=== PATIENT | female | born 1995 ===

== ENCOUNTER 2016-12-03 20:26 | Emergency (ER) | payer MEDICAID, OTHER ==
--- NOTE | 2016-12-03 20:50 | ED PDOC ---
HPI: Female Pain Time Seen by Provider: 12/03/16 20:47 Chief Complaint (Provider): Pelvic pain, - 8 weeks History Per: Patient History/Exam Limitations: no limitations Onset/Duration Of Symptoms: Hrs Current Symptoms Are (Timing): Still Present Severity: Mild Pain Scale Rating Of: 2 Additional Complaint(s): Pt states LMP was 10/03/16. Pt went to [facility] days ago and blood work completed. Pt has not had US to confirm IUP. Pt states she noticed blood when she wiped twice today but believes it is coming from the urine not the vaginal. Pt also reports suprapubic cramping, less than menses today. Past Medical History Reviewed: Historical Data, Nursing Documentation, Vital Signs - Medical History PMH: No Chronic Diseases - Surgical History Surgical History: No Surg Hx - Family History Family History: States: No Known Family Hx - Living Arrangements Living Arrangements: With Family - Social History Current smoker - smoking cessation education provided: No Alcohol: None Drugs: Denies - Home Medications Home Medications: Ambulatory Orders Medication Instructions Recorded Nitrofurantoin Macrocrystals 100 mg PO BID #9 cap 12/03/16 [Macrobid] - Allergies Allergies/Adverse Reactions: Allergies Allergy/AdvReac Type Severity Reaction Status Date / Time No Known Allergies Allergy Verified 12/03/16 20:49 Review of Systems ROS Statement: Except As Marked, All Systems Reviewed And Found Negative Constitutional: Negative for: Fever, Chills Genitourinary Female: Positive for: Hematuria, Pelvic Pain. Negative for: Vaginal Bleeding Physical Exam - Reviewed Nursing Documentation Reviewed: Yes Vital Signs Reviewed: Yes - Physical Exam Appears: Positive for: Well, Non-toxic, No Acute Distress Head Exam: Positive for: ATRAUMATIC, NORMAL INSPECTION, NORMOCEPHALIC Skin: Positive for: Normal Color, Warm, DRY Eye Exam: Positive for: Normal appearance ENT: Positive for: Normal ENT Inspection Neck: Positive for: Normal, Painless ROM Cardiovascular/Chest: Positive for: Regular Rate, Rhythm Respiratory: Positive for: Normal Breath Sounds. Negative for: Accessory Muscle Use, Respiratory Distress Gastrointestinal/Abdominal: Positive for: Normal Exam, Bowel Sounds, Soft. Negative for: Tenderness Back: Positive for: Normal Inspection Extremity: Positive for: Normal ROM Neurologic/Psych: Positive for: Alert, Oriented - Laboratory Results Result Diagrams: 12/03/16 20:55 10/05/17 21:13 - ECG Pulse Ox Interpretation: Normal Medical Decision Making Medical Decision Making: (+) UTI IUP on Us Disposition - Clinical Impression Clinical Impression: Urinary tract infection - Patient ED Disposition Is Patient to be Admitted: No - Disposition [facility] Disposition: Routine/Home Disposition Time: 23:17 Condition: GOOD Prescriptions: Nitrofurantoin Macrocrystals [Macrobid] 100 mg PO BID #9 cap Instructions: Urinary Tract Infection in (ED) Print Language: TURKMEN
[2016-12-03 20:51] VITALS: BP 134/82; PULSE 100; RESP 16; TEMP 97.9; O2SAT 99
[2016-12-03 21:20] LABS: HEMATOCRIT 38.5 % (34.0-47.0); MEAN CELL VOLUME 89.8 fl (81.0-99.0); MEAN CORPUSCULAR HEMOGLOBIN 30.1 pg (27.0-31.0); MEAN CORPUSCULAR HGB CONC 33.5 g/dL (33.0-37.0); RED CELL DISTRIBUTION WIDTH 12.4 % (11.5-14.5); WHITE BLOOD COUNT 15.8 K/uL (4.8-10.8)
[2016-12-03 21:40] LABS: ALB/GLOB RATIO 1.5 (1.0-2.1); ALKALINE PHOSPHATASE 34 U/L (38-126); ALT/SGPT 24 U/L (9-52); AST/SGOT 19 U/L (14-36); BILIRUBIN,TOTAL 0.3 mg/dl (0.2-1.3); BLOOD UREA NITROGEN 10 mg/dl (7-17); CALCIUM 9.5 mg/dL (8.4-10.2); CARBON DIOXIDE 22 mmol/L (22-30); CHLORIDE 105 mmol/L (98-107); GFR AFRICAN-AMERICAN > 60; GLUCOSE,RANDOM 83 mg/dL (65-105); SODIUM 140 mmol/l (132-148); TOTAL PROTEIN 7.4 G/DL (6.3-8.2)
[2016-12-03 21:44] LABS: RBC URINE 360 /hpf (0-3); URINE BILIRUBIN NEGATIVE (NEGATIVE); URINE BLOOD LARGE (NEGATIVE); URINE COLOR YELLOW (YELLOW); URINE GLUCOSE (UA) NEG (Normal); URINE KETONE NEGATIVE (NEGATIVE); URINE LEUKOCYTE ESTERASE LARGE Leu/uL (Negative); URINE PROTEIN 100 mg/dL (NEGATIVE); URINE UROBILINOGEN 0.2-1.0 mg/dL (0.2-1.0); WBC URINE 327 /hpf (0-5)
--- NOTE | 2016-12-04 12:27 | US ---
PROCEDURE: First trimester ultrasound HISTORY: 8 weeks, pelvic pain Beta HCG results: Pending COMPARISON: None available. TECHNIQUE: Standard protocol for this study/examination. FINDINGS: LMP: 10/03/2016 Prior examinations from the current : None TECHNIQUE: Real-time 2D imaging, duplex and color Doppler. FINDINGS: Cardiac activity: Present Rate: 128 BPM Measurements: [place] rump length: 0.46 cm Gestational age based on CRL 6 weeks 1 day. Gestational age based on gestational sac measurement 5 weeks 6 days Gestational age derived from LMP: 8 weeks 5 days JORDON based on LMP: 07/10/2017 JORDON based on biometry: 07/29/2017 Gestational concordance documented Yolk sac identified Uterus: Unremarkable. No Cervical abnormalities: Negative examination for cervical dilatation or effacement. Cervical length 3.7 cm Subchorionic hemorrhage: None ADNEXA: Right: 1.9 x 2.1 x 2.6 cm. Normal Doppler arterial waveform documented. Left: 2.0 x 3.1 x 3.2 cm. Normal Doppler arterial waveform documented Fluid in the cul-de-sac: None. IMPRESSION: Six weeks, live intrauterine gestation. Concordant results (preliminary interpretation) provided by [facility]. Procedure Completed: 22:01 Preliminary ([facility]) Report: Dictated and Authenticated: 23:10 Final Interpretation: 12:25 December 04, 2016.
== END 2016-12-03 23:26 | disposition home or self-care (01) ==
LOC: H.ER 20:26
DX: O23.40 Unspecified infection of urinary tract in pregnancy, unspecified trimester (principal)

== ENCOUNTER 2016-12-07 12:58 | Emergency (ER) | payer MEDICAID ==
[2016-12-07 15:05] LABS: BASO # 0.1 K/uL (0.0-0.2); BASO % 0.8 % (0.0-2.0); EOS # 0.5 K/uL (0.0-0.7); EOS % 4.6 % (0.0-4.0); HEMATOCRIT 38.1 % (34.0-47.0); LYMPH # 2.7 K/uL (1.0-4.3); LYMPH % 26.2 % (20.0-40.0); MEAN CELL VOLUME 88.8 fl (81.0-99.0); MEAN CORPUSCULAR HEMOGLOBIN 30.8 pg (27.0-31.0); MEAN CORPUSCULAR HGB CONC 34.7 g/dL (33.0-37.0); MEAN PLATELET VOLUME 10.6 fl (7.2-11.7); MONO % 9.3 % (0.0-10.0); NEUT # 6.1 K/uL (1.8-7.0); NEUT % 59.1 % (50.0-75.0); RED CELL DISTRIBUTION WIDTH 12.6 % (11.5-14.5); WHITE BLOOD COUNT 10.3 K/uL (4.8-10.8)
--- NOTE | 2016-12-07 15:15 | ED PDOC ---
HPI: General Adult Time Seen by Provider: 12/07/16 13:18 Chief Complaint (Nursing): Abdominal Pain History Per: Patient Additional Complaint(s): Pt. states for the past week she's had intermittent non-radiating epigastric pain associated with nausea but no vomiting. Further states that abdominal pain arises after eating. Pt. states she is currently . LMP 10/03/2016. Pt. states she was seen here 4 days ago as she noticed some bleeding when she wiped after she urinated. Reports that she had an US which was normal and was dx as having UTI and is currently taking Macrobid. Reports bleeding has resolved. States pain in abdomen has been present before taking antibiotics. Denies dysuria, fever, hematemesis, diarrhea, hematochezia, BRBPR, chest pain, SOB, hx of ectopic . Past Medical History Reviewed: Historical Data, Nursing Documentation, Vital Signs Vital Signs: Last Vital Signs Temp 98.0 F 12/07/16 13:13 Pulse 84 12/07/16 13:13 Resp 16 12/07/16 13:13 BP 104/71 12/07/16 13:13 Pulse Ox 99 12/07/16 15:16 - Family History Family History: States: No Known Family Hx - Home Medications Home Medications: Ambulatory Orders Medication Instructions Recorded Nitrofurantoin Macrocrystals 100 mg PO BID #9 cap 12/03/16 [Macrobid] Famotidine [Pepcid] 20 mg PO DAILY PRN #14 tab 12/07/16 - Allergies Allergies/Adverse Reactions: Allergies Allergy/AdvReac Type Severity Reaction Status Date / Time No Known Allergies Allergy Verified 12/03/16 20:49 Review of Systems ROS Statement: Except As Marked, All Systems Reviewed And Found Negative Gastrointestinal: Positive for: Nausea, Abdominal Pain Physical Exam - Reviewed Nursing Documentation Reviewed: Yes Vital Signs Reviewed: Yes - Physical Exam Appears: Positive for: Well, Non-toxic, No Acute Distress Head Exam: Positive for: ATRAUMATIC, NORMAL INSPECTION, NORMOCEPHALIC Skin: Positive for: Normal Color, Warm. Negative for: Rash Eye Exam: Positive for: Normal appearance Cardiovascular/Chest: Positive for: Regular Rate, Rhythm Respiratory: Positive for: CNT, Normal Breath Sounds Gastrointestinal/Abdominal: Positive for: Normal Exam, Bowel Sounds, Soft. Negative for: Tenderness, Guarding Back: Positive for: Normal Inspection. Negative for: L CVA Tenderness, R CVA Tenderness Extremity: Positive for: Normal ROM Neurologic/Psych: Positive for: Alert, Oriented - Laboratory Results Result Diagrams: 12/07/16 15:00 12/07/16 15:00 - ECG O2 Sat by Pulse Oximetry: 99 - Progress ED Course And Treament: Labs ordered. Pepcid 20mg IV, reglan 10mg IVPB ordered. Re-evaluation Time: 15:46 (Pt. had meal while in ED and reports good relief of pain. Abd soft and non-tender. States abd pain has completely resolved. ) Condition: Re-examined, Improved Disposition - Clinical Impression Clinical Impression: Gastritis - Patient ED Disposition Is Patient to be Admitted: No - Disposition Disposition: Routine/Home Disposition Time: 15:47 Condition: IMPROVED Prescriptions: Famotidine [Pepcid] 20 mg PO DAILY PRN #14 tab PRN Reason: Dyspepsia Instructions: Gastritis (ED) Forms: [facility] (Thai) Print Language: MACEDONIAN
[2016-12-07 15:31] LABS: ALB/GLOB RATIO 1.5 (1.0-2.1); ALKALINE PHOSPHATASE 36 U/L (38-126); ALT/SGPT 23 U/L (9-52); AST/SGOT 17 U/L (14-36); BILIRUBIN,TOTAL 0.5 mg/dl (0.2-1.3); BLOOD UREA NITROGEN 5 mg/dl (7-17); CALCIUM 9.7 mg/dL (8.4-10.2); CARBON DIOXIDE 24 mmol/L (22-30); CHLORIDE 102 mmol/L (98-107); GFR AFRICAN-AMERICAN > 60; GLUCOSE,RANDOM 82 mg/dL (65-105); LIPASE 99 U/L (23-300); POTASSIUM 4.1 MMOL/L (3.6-5.0); SODIUM 139 mmol/l (132-148); TOTAL PROTEIN 7.5 G/DL (6.3-8.2)
[2016-12-07 16:44] VITALS: BP 120/76; PULSE 75; RESP 18; TEMP 98; O2SAT 100
== END 2016-12-07 16:44 | disposition home or self-care (01) ==
LOC: H.ER 12:58
DX: K29.70 Gastritis, unspecified, without bleeding (principal); Z33.1 Pregnant state, incidental
CPT/HCPCS: 80053; 83690; 85025; 96374; 99283; J2765

== ENCOUNTER 2017-01-08 20:55 | Emergency (ER) | payer MEDICAID, OTHER ==
[2017-01-08 21:06] VITALS: BP 127/82; PULSE 103; RESP 18; TEMP 97.2; O2SAT 100
[2017-01-08 22:40] LABS: BASO # 0.1 K/uL (0.0-0.2); BASO % 0.6 % (0.0-2.0); EOS # 0.6 K/uL (0.0-0.7); EOS % 4.4 % (0.0-4.0); HEMATOCRIT 33.5 % (34.0-47.0); LYMPH # 3.4 K/uL (1.0-4.3); LYMPH % 27.3 % (20.0-40.0); MEAN CELL VOLUME 88.4 fl (81.0-99.0); MEAN PLATELET VOLUME 10.7 fl (7.2-11.7); NEUT # 7.5 K/uL (1.8-7.0); NEUT % 59.7 % (50.0-75.0); RED CELL DISTRIBUTION WIDTH 12.4 % (11.5-14.5); WHITE BLOOD COUNT 12.6 K/uL (4.8-10.8)
[2017-01-08 22:43] LABS: URINE BACTERIA OCC (<OCC); URINE BILIRUBIN NEGATIVE (NEGATIVE); URINE BLOOD MODERATE (NEGATIVE); URINE COLOR YELLOW (YELLOW); URINE GLUCOSE (UA) NEG (Normal); URINE KETONE NEGATIVE (NEGATIVE); URINE LEUKOCYTE ESTERASE MOD Leu/uL (Negative); URINE PROTEIN NEGATIVE (NEGATIVE); URINE UROBILINOGEN 0.2-1.0 mg/dL (0.2-1.0)
--- NOTE | 2017-01-08 22:47 | US ---
EXAM: US Uterus, Limited CLINICAL HISTORY: 21 years old, female; Signs and symptoms; Lmp or gestational age (in weeks): 10/03/16; Antepartum complications; Hemorrhage; ; Additional info: Vag bleed preg R/O demise TECHNIQUE: Real-time ultrasound of the maternal uterus (limited) with image documentation. COMPARISON: US - OB TRANSVAGINAL 2016-12-03 21:47 FINDINGS: A single intrauterine gestation is identified with a crown-rump length measuring 4.6 cm, corresponding to approximate gestational age of 11 weeks and 3 days. cardiac activity is identified a rate of 172 beats per minute. motion is observed on the cine images. The cervix measures 4.3 cm, and is closed. No free fluid is identified. Despite prolonged interrogation, neither ovary was visualized. IMPRESSION: Single intrauterine gestation with an approximate gestational age of 11 weeks and 3 days. cardiac activity is identified.
[2017-01-08 22:52] LABS: RBC URINE 25 /hpf (0-3); WBC URINE 18 /hpf (0-5)
[2017-01-08 23:08] LABS: ALKALINE PHOSPHATASE 30 U/L (38-126); ALT/SGPT 20 U/L (9-52); AST/SGOT 16 U/L (14-36); BILIRUBIN,TOTAL 0.2 mg/dl (0.2-1.3); BLOOD UREA NITROGEN 7 mg/dl (7-17); CALCIUM 9.5 mg/dL (8.4-10.2); CARBON DIOXIDE 21 mmol/L (22-30); CHLORIDE 107 mmol/L (98-107); GFR AFRICAN-AMERICAN > 60; GLUCOSE,RANDOM 85 mg/dL (65-105); SODIUM 139 mmol/l (132-148); TOTAL PROTEIN 7.1 G/DL (6.3-8.2)
[2017-01-08 23:13] LABS: ALB/GLOB RATIO 1.4 (1.0-2.1)
--- NOTE | 2017-01-08 23:27 | ED PDOC ---
HPI: Female Pain Time Seen by Provider: 01/08/17 21:12 Chief Complaint (Nursing): Female Genitourinary Chief Complaint (Provider): vaginal bleeding Onset/Duration Of Symptoms: Sudden Onset Current Symptoms Are (Timing): Gone Now Severity: Mild Quality Of Discomfort: denies: "Pain" Associated Symptoms: Urinary Symptoms (frequency, but no dysuria). denies: Fever, Chills, Nausea, Vomiting, Diarrhea, Loss Of Appetite, Back Pain, Chest Pain Additional Complaint(s): episode occurred while showering, no clot, no cramping. [facility] Past Medical History Reviewed: Historical Data, Nursing Documentation, Vital Signs Vital Signs: Last Vital Signs Temp 97.2 F L 01/08/17 21:03 Pulse 103 H 01/08/17 21:03 Resp 18 01/08/17 21:03 BP 127/82 01/08/17 21:03 Pulse Ox 100 01/08/17 21:03 - Medical History PMH: No Chronic Diseases - Surgical History Surgical History: No Surg Hx - Family History Family History: States: No Known Family Hx - Social History Current smoker - smoking cessation education provided: No - Home Medications Home Medications: Ambulatory Orders Medication Instructions Recorded Nitrofurantoin Macrocrystals 100 mg PO BID #9 cap 12/03/16 [Macrobid] Famotidine [Pepcid] 20 mg PO DAILY PRN #14 tab 12/07/16 Nitrofurantoin Macrocrystals 1 cap PO BID #14 cap 01/08/17 [Macrobid] - Allergies Allergies/Adverse Reactions: Allergies Allergy/AdvReac Type Severity Reaction Status Date / Time No Known Allergies Allergy Verified 12/03/16 20:49 Review of Systems ROS Statement: Except As Marked, All Systems Reviewed And Found Negative (and as per HPI) Gastrointestinal: Negative for: Nausea, Vomiting, Abdominal Pain, Diarrhea Genitourinary Female: Positive for: Frequency, Vaginal Bleeding. Negative for: Dysuria, Pelvic Pain Physical Exam - Reviewed Nursing Documentation Reviewed: Yes Vital Signs Reviewed: Yes - Physical Exam Appears: Positive for: Well, No Acute Distress Head Exam: Positive for: ATRAUMATIC, NORMOCEPHALIC Skin: Positive for: Warm, Dry Eye Exam: Positive for: EOMI, PERRL ENT: Positive for: Pharynx Is (clear) Neck: Positive for: Painless ROM, Supple Cardiovascular/Chest: Positive for: Regular Rate, Rhythm, Chest Non Tender. Negative for: Murmur Respiratory: Positive for: Normal Breath Sounds. Negative for: Wheezing Gastrointestinal/Abdominal: Positive for: Soft. Negative for: Tenderness Back: Positive for: Normal Inspection. Negative for: Decreased ROM Extremity: Positive for: Normal ROM. Negative for: Deformity Lymphatic: Negative for: Adenopathy Neurologic/Psych: Positive for: Alert. Negative for: Motor/Sensory Deficits - Laboratory Results Result Diagrams: 01/08/17 22:29 01/08/17 22:55 - ECG O2 Sat by Pulse Oximetry: 100 Medical Decision Making Medical Decision Making: EXAM: US Uterus, Limited CLINICAL HISTORY: 21 years old, female; Signs and symptoms; Lmp or gestational age (in weeks): 10/03; Antepartum complications; Hemorrhage; ; Additional info: Vag bleed preg R/O demise TECHNIQUE: Real-time ultrasound of the maternal uterus (limited) with image documentation. COMPARISON: US - OB TRANSVAGINAL 2016-12-03 21:47 FINDINGS: A single intrauterine gestation is identified with a crown-rump length measuring 4.6 cm, corresponding to approximate gestational age of 11 weeks and 3 days. cardiac activity is identified a rate of 172 beats per minute. motion is observed on the cine images. The cervix measures 4.3 cm, and is closed. No free fluid is identified. Despite prolonged interrogation, neither ovary was visualized. IMPRESSION: Single intrauterine gestation with an approximate gestational age of 11 weeks and 3 days. cardiac activity is identified. Thank you for allowing us to participate in the care of your patient. Dictated and Authenticated by: Breana Valencia MD 01/08/2017 10:47 PM Eastern Time ([place] & [place]) Disposition - Clinical Impression Clinical Impression: Urinary tract infection, Vaginal bleeding in Counseled Patient/Family Regarding: Studies Performed, Diagnosis, Need For Followup, Rx Given - Disposition Disposition: Routine/Home Disposition Time: 23:28 Condition: GOOD Additional Instructions: REST FOR 2 DAYS AND SEE YOUR SALES PERSON ON WEDNESDAY PELVIC REST (NO TAMPON, NO SEX, NO DOUCHE) Prescriptions: Nitrofurantoin Macrocrystals [Macrobid] 1 cap PO BID #14 cap Instructions: First Trimester Vaginal Bleed (ED), Urinary Tract Infection in (ED), Pelvic Rest (ED) Forms: [facility] ED School/Work Excuse Print Language: WELSH
== END 2017-01-08 23:50 | disposition home or self-care (01) ==
LOC: H.ER 20:55
DX: O23.41 Unspecified infection of urinary tract in pregnancy, first trimester (principal); O20.9 Hemorrhage in early pregnancy, unspecified; Z3A.11 11 weeks gestation of pregnancy

== ENCOUNTER 2017-03-01 11:42 | Emergency (ER) | payer MEDICAID ==
[2017-03-01 11:49] VITALS: BP 127/74; PULSE 113; TEMP 99.1; O2SAT 98
--- NOTE | 2017-03-01 12:25 | ED PDOC ---
HPI: CCC, URI, Sore Throat Time Seen by Provider: 03/01/17 12:03 Chief Complaint (Nursing): ENT Problem Chief Complaint (Provider): Left Ear Pain History Per: Patient History/Exam Limitations: no limitations Onset/Duration Of Symptoms: Days (2 days) Current Symptoms Are (Timing): Still Present Additional Complaint(s): 21 y/o female presents to the ED complaining of left ear pain associated with the feeling of water in her ears, onset of 2 days. Patient is 21 weeks and has been taking Tylenol without relief. Patient denies any symptoms of fever , abdominal pain, pelvic pain, vaginal bleeding, or sore throat. Past Medical History Reviewed: Historical Data, Nursing Documentation, Vital Signs Vital Signs: Last Vital Signs Temp 99.1 F 03/01/17 11:47 Pulse 113 H 03/01/17 11:47 Resp BP 127/74 03/01/17 11:47 Pulse Ox 98 03/01/17 11:47 - Medical History PMH: No Chronic Diseases - Surgical History Surgical History: No Surg Hx - Family History Family History: States: Unknown Family Hx - Living Arrangements Living Arrangements: With Family - Social History Current smoker - smoking cessation education provided: No Ex-Smoker (has not smoked in the last 12 months): No Alcohol: None Drugs: Denies - Home Medications Home Medications: Ambulatory Orders Medication Instructions Recorded Nitrofurantoin Macrocrystals 100 mg PO BID #9 cap 12/03/16 [Macrobid] Famotidine [Pepcid] 20 mg PO DAILY PRN #14 tab 12/07/16 Nitrofurantoin Macrocrystals 1 cap PO BID #14 cap 01/08/17 [Macrobid] Amoxicillin [Amoxil 500 mg Cap] 500 mg PO TID #30 cap 03/01/17 - Allergies Allergies/Adverse Reactions: Allergies Allergy/AdvReac Type Severity Reaction Status Date / Time No Known Allergies Allergy Verified 12/03/16 20:49 Review of Systems ROS Statement: Except As Marked, All Systems Reviewed And Found Negative Constitutional: Negative for: Fever ENT: Positive for: Ear Pain (left ear). Negative for: Throat Pain Gastrointestinal: Negative for: Abdominal Pain Genitourinary Female: Negative for: Vaginal Bleeding, Pelvic Pain Skin: Negative for: Rash Physical Exam - Reviewed Nursing Documentation Reviewed: Yes Vital Signs Reviewed: Yes - Physical Exam Appears: Negative for: No Acute Distress Skin: Positive for: Normal Color. Negative for: Rash Eye Exam: Positive for: Normal appearance, EOMI, PERRL ENT: Positive for: TM Is/Are (left tm is erythematous and bulging, canal is clear, right tm is normal). Negative for: Pharyngeal Erythema, Tonsillar Exudate - ECG O2 Sat by Pulse Oximetry: 98 (RA) Pulse Ox Interpretation: Normal Medical Decision Making Medical Decision Making: Time: --12:15 Impression: --21 y/o female with Otitis Media Plan: --Advice to take Tylenol for Pain Reassess --12:20 Patient is stable for discharge home. Scribe Attestation: Documented by Asher Chamberlain acting as a scribe for NAGA Howell. Disposition - Clinical Impression Clinical Impression: Otitis media - Patient ED Disposition Is Patient to be Admitted: No - Disposition Referrals: [facility] [Outside] Disposition: Routine/Home Disposition Time: 12:20 Condition: STABLE Additional Instructions: Follow up with your OBGYN for further evaluation. Take Tylenol at home for pain. Prescriptions: Amoxicillin [Amoxil 500 mg Cap] 500 mg PO TID #30 cap Instructions: Otitis Media (ED) Forms: [facility] (Portuguese) Print Language: KYRGYZ
== END 2017-03-01 12:20 | disposition home or self-care (01) ==
LOC: H.ER 11:42
DX: H66.92 Otitis media, unspecified, left ear (principal); Z3A.21 21 weeks gestation of pregnancy

== ENCOUNTER 2017-06-12 21:26 | Emergency (ER) | payer MEDICAID, OTHER ==
[2017-06-12 21:41] VITALS: BP 129/83; PULSE 93; RESP 16; TEMP 98.4; O2SAT 100
--- NOTE | 2017-06-12 21:51 | ED PDOC ---
HPI: General Adult Time Seen by Provider: 06/12/17 21:49 Chief Complaint (Nursing): Wound Check Chief Complaint (Provider): puncture wound History Per: Patient Additional Complaint(s): 21-year-old female currently 35 weeks presents with puncture wound to right heel. Patient stepped on a foreign object about 1 hour ago. Patient is concerned that her tetanus is not up-to-date. No active bleeding noted. Past Medical History Reviewed: Historical Data, Nursing Documentation, Vital Signs Vital Signs: Last Vital Signs Temp 98.4 F 06/12/17 21:39 Pulse 93 H 06/12/17 21:39 Resp 16 06/12/17 21:39 BP 129/83 06/12/17 21:39 Pulse Ox 100 06/12/17 21:51 - Medical History PMH: No Chronic Diseases - Family History Family History: States: No Known Family Hx - Living Arrangements Living Arrangements: With Family - Social History Current smoker - smoking cessation education provided: No Alcohol: None Drugs: Denies - Home Medications Home Medications: Ambulatory Orders Medication Instructions Recorded Nitrofurantoin Macrocrystals 100 mg PO BID #9 cap 12/03/16 [Macrobid] Famotidine [Pepcid] 20 mg PO DAILY PRN #14 tab 12/07/16 Nitrofurantoin Macrocrystals 1 cap PO BID #14 cap 01/08/17 [Macrobid] Amoxicillin [Amoxil 500 mg Cap] 500 mg PO TID #30 cap 03/01/17 - Allergies Allergies/Adverse Reactions: Allergies Allergy/AdvReac Type Severity Reaction Status Date / Time No Known Allergies Allergy Verified 06/12/17 21:39 Review of Systems ROS Statement: Except As Marked, All Systems Reviewed And Found Negative Gastrointestinal: Negative for: Abdominal Pain Genitourinary Female: Negative for: Vaginal Bleeding, Pelvic Pain Skin: Positive for: Other (puncture wound right heel) Physical Exam - Reviewed Nursing Documentation Reviewed: Yes Vital Signs Reviewed: Yes - Physical Exam Appears: Positive for: Well, Non-toxic, No Acute Distress Skin: Negative for: Rash Eye Exam: Positive for: Normal appearance Cardiovascular/Chest: Positive for: Regular Rate, Rhythm Respiratory: Positive for: Normal Breath Sounds Gastrointestinal/Abdominal: Positive for: Other (gravid non-tender abdomen) Extremity: Positive for: Normal ROM, Other (Minute puncture wound noted to right heel, no active bleeding, no foreign body, N/V intact) Neurologic/Psych: Positive for: Alert, Oriented - ECG O2 Sat by Pulse Oximetry: 100 Pulse Ox Interpretation: Normal Medical Decision Making Medical Decision Makin21 year old female with puncture wound to right foot Patient presents to ED with records from her OB which indicates the patient recently received tetanus booster on 06/04/17. Patient was advised to keep wound clean and dry and follow up on Wednesday with OB. Disposition - Clinical Impression Clinical Impression: Puncture wound - Patient ED Disposition Is Patient to be Admitted: No - Disposition Referrals: [facility] [Outside] Disposition: Routine/Home Disposition Time: 21:55 Condition: STABLE Additional Instructions: Tylenol for pain as needed. Keep wound clean and dry. Follow up Wednesday with your OB. Instructions: Skin Abrasions Forms: [facility] (Yoruba)
== END 2017-06-12 22:30 | disposition home or self-care (01) ==
LOC: H.ER 21:26
DX: S91.331A Puncture wound without foreign body, right foot, initial encounter (principal); W26.8XXA Contact with other sharp object(s), not elsewhere classified, initial encounter; Y92.89 Other specified places as the place of occurrence of the external cause; Z3A.35 35 weeks gestation of pregnancy

== ENCOUNTER 2017-07-12 18:21 | Inpatient (IN) | payer OTHER ==
[2017-07-12 19:43] VITALS: BMI 33.6
[2017-07-12] MEDS ORDERED: Magnesium Sulfate 4 gm/100 ml 4 GM/100 ML BAG IV ONE (19:57)
[2017-07-12] MEDS ORDERED: Magnesium Sul 40GM/1L SW 40 GM/1,000 ML ML IV ONE (20:02)
[2017-07-12 20:17] LABS: SQUAMOUS EPITHIAL 8 /hpf (0-5); URINE BACTERIA RARE (<OCC); URINE BILIRUBIN NEGATIVE (NEGATIVE); URINE BLOOD NEGATIVE (NEGATIVE); URINE CLARITY SLIGHTY-CLOUDY (Clear); URINE COLOR YELLOW (YELLOW); URINE GLUCOSE (UA) NEG (Normal); URINE LEUKOCYTE ESTERASE MOD Leu/uL (Negative); URINE PROTEIN 100 mg/dL (NEGATIVE); URINE UROBILINOGEN 0.2-1.0 mg/dL (0.2-1.0)
[2017-07-12 20:18] LABS: BASO # 0.1 K/uL (0.0-0.2); BASO % 0.4 % (0.0-2.0); EOS # 0.2 K/uL (0.0-0.7); EOS % 1.9 % (0.0-4.0); HEMOGLOBIN 11.9 g/dL (12.0-16.0); LYMPH # 2.4 K/uL (1.0-4.3); LYMPH % 19.6 % (20.0-40.0); MEAN CELL VOLUME 88.5 fl (81.0-99.0); MEAN CORPUSCULAR HEMOGLOBIN 30.2 pg (27.0-31.0); MEAN CORPUSCULAR HGB CONC 34.1 g/dL (33.0-37.0); MEAN PLATELET VOLUME 11.1 fl (7.2-11.7); MONO # 1.1 K/uL (0.0-0.8); MONO % 8.7 % (0.0-10.0); NEUT # 8.5 K/uL (1.8-7.0); NEUT % 69.4 % (50.0-75.0); PLATELET COUNT 142 K/uL (130-400); RBC 3.95 Mil/uL (3.80-5.20); RED CELL DISTRIBUTION WIDTH 13.7 % (11.5-14.5); WHITE BLOOD COUNT 12.3 K/uL (4.8-10.8)
[2017-07-12 20:27] LABS: PARTIAL THROMBOPLASTIN TIME 26.9 Seconds (25.6-37.1); PROTHROMBIN TIME 10.5 Seconds (9.8-13.1)
[2017-07-12 20:34] LABS: ALB/GLOB RATIO 1.2 (1.0-2.1); ALBUMIN 3.2 g/dL (3.5-5.0); ALT/SGPT 22 U/L (9-52); AST/SGOT 18 U/L (14-36); BILIRUBIN,DIRECT 0.3 mg/ml (0.0-0.4); BLOOD UREA NITROGEN 12 mg/dl (7-17); CALCIUM 9.7 mg/dL (8.4-10.2); GFR AFRICAN-AMERICAN > 60; GFR NON-AFRICAN AMERICAN > 60
[2017-07-12] MEDS: Lactated Ringer's 1,000 ML IV SCH (20:40)
[2017-07-12 20:51] LABS: LYMPHOCYTE 25 % (20-50); METAMYELOCYTE 1 % (0-0); MONOCYTE 3 % (0-10); MYELOCYTE 1 % (0-0); NEUTROPHIL 70 % (42-75); NUCLEATED RED BLOOD CELL 1 % (0-0); PLATELET ESTIMATE NORMAL (NORMAL); TOTAL CELLS COUNTED 100
[2017-07-12 20:52] LABS: STOMATOCYTES SLIGHT
--- NOTE | 2017-07-12 23:11 | OBADHP ---
Datetime: 07/12/2017 22:49 Admit Comment, IP Provider: Pt is a 21 y/o femalge with IUP 40.e wks gestation(JORDON 07/12) sent o erich from [facility] due to preeclpamsia symptoms and elevated 24 urine protein. Pt reports that sh tanvir has been having a mild temporal headache for 1 week, epigastric abodminal pain x 1 day associated w ith 1 episode of vomiting, and a short episode of blurry vision lasting for 5 minutes yesterday. She has also noticed her face and hands appear "puffy." She denies any ctx, vb, or lof. +FM PNC: [place], Labs reviewed. +GBS bacturia, 24 urine elevated (707) from 07/08. 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 Otherwise pnc has been unremarkable OBHx: none PMHX: none Surg: none Meds: PNV Allergies: none Social: denies x 3 habits Vitals: BP 152/97, HR 97 PE: pt appears comfortable, NAD Cardio: RRR, no murmurs Pulm: CTABL Abdomen: Gravid, NT Extremities: Trace edema of lower extremities FHR: 136, reactive, no decels [place]: no ctx A: IUP 40.2 weeks with preeclampsia symptoms, proteinuria and elevated BP Plan: Admit to L_D for Induction of labor. Magnesium sulfate loading dose and maintanence started. Cytotec 50mg q4. Preeclapmsia workup sent. Monitor maternal vital signs and sings of progression of labor. Continuous monitoring. Monitor I/O's. Discussed with OB HOspitalist air sampling and monitoring Sarahi, PGY1 Addendum by Dr. Mina: Patient evaluated independently and I agree with the above IP Chief Complaint: Other IP Adm Impression: Term, intrauterine IP Admit Plan: Admit to unit; Initiate labor protocol
[2017-07-13] MEDS: Lactated Ringer's 1,000 ML IV SCH (10:15)
[2017-07-13] MEDS ORDERED: Magnesium Sul 40GM/1L SW 40 GM/1,000 ML ML IV ONE ×2 (10:25→20:23)
[2017-07-13 17:43] LABS: HEMOGLOBIN 12.2 g/dL (12.0-16.0); MEAN CELL VOLUME 88.5 fl (81.0-99.0); MEAN CORPUSCULAR HGB CONC 33.9 g/dL (33.0-37.0); RBC 4.07 Mil/uL (3.80-5.20); WHITE BLOOD COUNT 12.5 K/uL (4.8-10.8)
[2017-07-13 17:48] LABS: ALB/GLOB RATIO 1.1 (1.0-2.1); ALBUMIN 3.2 g/dL (3.5-5.0); ALT/SGPT 25 U/L (9-52); AST/SGOT 18 U/L (14-36); BLOOD UREA NITROGEN 12 mg/dl (7-17); CALCIUM 7.6 mg/dL (8.4-10.2); GFR AFRICAN-AMERICAN > 60; GFR NON-AFRICAN AMERICAN > 60; URIC ACID 5.1 mg/Dl (2.2-7.5)
[2017-07-13] MEDS ORDERED: ceFAZolin IV 2 gm in Dextrose 2 GM/50 ML BAG IVPB ONE ×2 (22:26→22:30)
[2017-07-13] MEDS ORDERED: ePHEDrine 50 mg/ml Inj ONE (22:41)
[2017-07-13] MEDS ORDERED: Morphine 1 mg/ml preservative-free Inj(Duramorph) ONE (22:41)
[2017-07-13] MEDS ORDERED: Phenylephrine 10 mg/ml Inj ONE (22:41)
[2017-07-13] MEDS ORDERED: Oxytocin 20 units in LR 0 ML IV ONE (22:46)
[2017-07-13] MEDS ORDERED: Oxycodone/Acetaminophen 5/325 mg Tab PO PRN ×2 (23:57)
--- NOTE | 2017-07-14 02:28 | OBDS ---
DELIVERY PERSONNEL Delivery Doctor: Ana Luisa Cuevas DO Supervisor Tumbling And Rolling: NancyvzaarNorberto Anesthesiologist: Naz Calderon MD Resident: Dr. Lance PGY1 MATERNAL INFORMATION Delivery Anesthesia: Spinal Medications in Delivery: Pitocin Estimated Blood Loss (ml): 800 Placenta Cultured: No Maternal Complications: None Provider Comments: -PreOpDx worsening pre-eclampsia -PostOpDx same Procedure: Primary LTCS via Pfannenstiel incision Surgeon: Dr Cuevas Asst Dr Lance PGY1 Anest: Dr Calderon Anest: Spinal Findings: live female delivered from [facility] presentation 9,9 Clear AF Placenta delivered intact manually Ovaries and tubes WNL grossly EBL 800cc SHe remained stable and all equipment sponges and needles accounted for LABOR SUMMARY EDC: 07/10/2017 00:00 No. Babies in Womb: 1 Attempted: No Labor Anesthesia: Epidural LABOR INFORMATION Reason for Induction: Gest. HTN/PreEclampsia/Eclampsia Cervical Ripening Agents: Cervidil Oxytocin: N/A Group B Beta Strep: Positive Antibiotics # of Doses: N/A Antibiotics Time of Last Dose: N/A Steroids Given: None Reason Steroids Not Administered: Not Applicable MEMBRANES Membranes Rupture Method: Artificial Rupture of Membranes: 07/13/2017 23:24 Length of Rupture (hrs): 0.00 Amniotic Fluid Color: Clear Amniotic Fluid Amount: Small Amniotic Fluid Odor: Normal STAGES OF LABOR Stage 3 hrs: 0 Stage 3 min: 1 CSECTION DELIVERY Other Primary Indication: Worsening Preeclampsia CSection Urgency: Non Elective CSection Incidence: Primary Labor: Labor Elective: Nonelective BABY A INFORMATION Delivery Date/Time: 07/13/2017 23:24 Method of Delivery: Born in Route : No : N/A Forceps: N/A Vacuum Extraction: N/A Shoulder Dystocia : No SHOULDER DYSTOCIA BABY A Infant Delivery Date/Time: 07/13/2017 23:24 PRESENTATION/POSITION BABY A Presentation: Cephalic Cephalic Presentation: Vertex Breech Presentation: N/A PLACENTA INFORMATION BABY A Placenta Delivery Time : 07/13/2017 23:25 Placenta Method of Delivery: Manual Removal Placenta Status: Delivered SCORES BABY A Heart Rate 1 min: >100 bpm Resp Effort 1 min: Good Cry Reflex Irritability 1 min: Cough or Sneeze or Pulls Away Muscle Tone 1 min: Active Motion Color 1 min: Body [place], Extremities Blue SCORE 1 MIN: 9 Heart Rate 5 min: >100 bpm Resp Effort 5 min: Good Cry Reflex Irritability 5 min: Cough or Sneeze or Pulls Away Muscle Tone 5 min: Active Motion Color 5 min: Body [place], Extremities Blue Resuscitation Effort 5 min: N/A SCORE 5 MIN: 9 INFORMATION BABY A Gestational Age at Delivery: 40.3 Gestational Status: Term Infant Outcome : Liveborn Condition : Stable Sex: Female IDENTIFICATION/MEDS BABY A ID Band Number: [id number] ID Band Location: Left Leg; Left Arm WEIGHT/LENGTH BABY A Infant Birthweight (gms): 2350 Infant Weight (lb): 5 Weight (oz): 3 CORD INFORMATION BABY A No. Cord Vessels: 3 Nuchal Cord : N/A Nuchal Cord Other: N/A True Knot: N/A Cord pH Baby Arterial: N/A Cord pH Baby Venous: N/A Cord Blood Taken: Yes Banking/Donate Info: N/A Suction: Mouth; Nose ASSESSMENT BABY A Infant Complications: None Physical Findings at Delivery: Within Normal Limits Infant Respirations: Appears Normal Equity Trader/ALS Called : No Infant Care By: Dr. Pickett/Khadar Transferred To: Remains with Mother
--- NOTE | 2017-07-14 02:29 | OBPN ---
Datetime: 07/13/2017 22:20 IP Progress Impression Other: Worsening pre-eclampsia IP Progress Impression: Reassuring heart rate; Gest. HTN/PreEclampsia/Eclampsia IP Informed Consent Obtain: Section Delivery; Risks, Benefits and Alternatives Discussed IP Progress Plan: Deliver- Section FHR Category Provider Fetus A: Category I Datetime: 07/13/2017 18:29 IP Procedures: Sterile Vag Exam Membranes, Provider: Intact IP Progress Note Comment: Cervidil placed at 1800 SVE: FT, 30%, -3 Pt tolerated well No HSV lesions visualized Acyclovir 400 mg BID restarted today Continue to monitor FHR and BPs. [facility]...pt seen on rounds in the morning. She was given Cytotec overnight and cont inued. She had no cervical change. Medication changed to Cervidil. JEANNDO Vital Signs Provider: Reviewed Dilatation, Provider: FT Effacement, Provider: 30 Station, Provider: -3
[2017-07-14] MEDS ORDERED: DiphenhydrAMINE 50 mg/ml Inj IVP ONE (03:48)
[2017-07-14 08:30] LABS: HEMOGLOBIN 11.5 g/dL (12.0-16.0); MEAN CELL VOLUME 88.3 fl (81.0-99.0); MEAN CORPUSCULAR HEMOGLOBIN 30.8 pg (27.0-31.0); MEAN CORPUSCULAR HGB CONC 34.9 g/dL (33.0-37.0); RBC 3.73 Mil/uL (3.80-5.20); RED CELL DISTRIBUTION WIDTH 14.2 % (11.5-14.5); WHITE BLOOD COUNT 13.2 K/uL (4.8-10.8)
[2017-07-14 08:52] LABS: ALB/GLOB RATIO 1.1 (1.0-2.1); ALT/SGPT 23 U/L (9-52); AST/SGOT 24 U/L (14-36); BLOOD UREA NITROGEN 9 mg/dl (7-17); CALCIUM 7.4 mg/dL (8.4-10.2); GFR AFRICAN-AMERICAN > 60; GFR NON-AFRICAN AMERICAN > 60
[2017-07-14 09:01] LABS: URIC ACID 5.1 mg/Dl (2.2-7.5)
[2017-07-14] MEDS ORDERED: Magnesium Sulfate 1 gm in D5W 1 GM/100 ML BAG IVPB ONE (10:25)
[2017-07-14] MEDS: Lactated Ringer's 1,000 ML IV SCH (13:45)
[2017-07-15] MEDS: Oxycodone/Acetaminophen 5/325 mg Tab PO PRN ×2 (04:56→19:27)
[2017-07-15] MEDS ORDERED: Oxycodone/Acetaminophen 5/325 mg Tab PO PRN (07:37)
[2017-07-15] MEDS: Prenatal Multivit/Folic Acid/Iron Tab PO SCH (08:06)
[2017-07-15] MEDS ORDERED: Prenatal Multivit/Folic Acid/Iron Tab PO SCH (09:00)
--- NOTE | 2017-07-15 09:10 | OP ---
PROCEDURE DATE: 07/13/2017 PREOPERATIVE DIAGNOSIS: Worsening signs of preeclampsia. POSTOPERATIVE DIAGNOSIS: Worsening signs of preeclampsia. PROCEDURE PERFORMED: Primary low-transverse section via Pfannenstiel incision. SURGEON: Didier Cuevas DO TAR CHASER: Dr. Lance, PGY-1. TYPE OF ANESTHESIA: Spinal. ANESTHESIA ADMINISTERED BY: Jl Calderon MD ESTIMATED BLOOD LOSS: 800 mL OPERATIVE FINDINGS: A live infant female delivered from cephalic presentation with an Apgars score of 9 and 9 given at one and five minutes respectively. Clear amniotic fluid was noted. Placenta was delivered intact manually. Ovaries and tubes were within normal limits. All equipments, sponges, and needles were accounted for. She remained hemodynamically stable throughout the procedure. DESCRIPTION OF PROCEDURE: Valentina was brought to the operating room and after successful spinal anesthesia, she was placed in a supine position. Catheter was already in place, draining clear urine. Compression boots were placed on both lower extremities. She was then draped and prepped in the usual sterile manner. Once adequate anesthesia was obtained, a Pfannenstiel incision was made using a scalpel. This incision was then taken down to underlying fascia using electrocautery. There was a large amount of adipose tissue to go through, the fascia was nicked in the midline and then extended bilaterally using electrocautery. The inferior aspect of the fascia was grasped using 2 Sue clamps, tented up, and the rectus muscle was both bluntly and sharply dissected. Using electrocautery, the same was done with the superior aspect of the fascia. In the midline superiorly, the rectus muscle was bluntly. Peritoneum was identified, tented up using 2 Sonali clamps, and then incised using Metzenbaum scissors. The incision was then extended superiorly and inferiorly with direct visualization of the bladder and intestines. Two lap pads were placed on the paracolic gutters. A bladder flap was created by incising the peritoneum on the uterus and extending it bilaterally. A bladder flap was created digitally. Bladder blade was then inserted behind the bladder flap. A low-transverse incision was made using the scalpel. Upon entering the uterus, the incision was then extended bilaterally using bandage scissors. Rupture of membranes were performed using forceps with teeth. was then delivered from cephalic presentation. First, the head was delivered and then the was then bulb suctioned nasopharyngeally. The remainder of the was then delivered as atraumatic as possible. Cord was clamped and cut. was crying spontaneously and infant was brought to the alumni relations manager in attendance. Cord bloods were obtained. Uterus was then exteriorized and cleared of debris and clots. First layer of the uterus closed using 0 Vicryl suture in an interlocking fashion. Second layer of the uterus was closed using 0 Vicryl suture imbricating the first layer. Good hemostasis was assured. Ovaries and tubes appeared to be within normal limits grossly. All equipments were removed and accounted for. Irrigation was performed. The lower uterine segment was noted to have good hemostasis. An 0 Vicryl suture was used to approximate the peritoneum in a running fashion. The rectus muscle was noted to have good hemostasis, was approximated x1 with an 0 Vicryl suture; 0 Vicryl suture was used to approximate the fascial layer in a running fashion. Irrigation was performed. Subcuticular layer was noted to have good hemostasis. A 2-0 plain suture was used to approximate the subcuticular layer x3. A 3-0 Vicryl suture was used to approximate the skin. Dermabond, Steri-Strips, and pressure bandages were applied. She was then transferred to the recovery room in stable condition. Didier Cuevas DO
--- NOTE | 2017-07-15 10:17 | OBPPN ---
Datetime: 07/15/2017 06:31 PP Pain Prov: Abnormal PP Nausea Prov: Denies PP Flatus Prov: Yes PP BM Prov: No PP Impression Prov: Normal progression PP Plan Prov: Continue present management PP Progress Note Prov: POD 1 S: 21 y/o female s/p c section on 07/13/17 for worsening preeclampsia seen and evaluated po st op day 2. No overnight events. Pt reports mild abdominal pain, but well controlled with pain meds . Denies dizziness/ lightheadedness/palpitations. Baby is breast feeding w/ formula supplementation. Lochia is similar to menses volume. No BM. Denies headache, visual disturbances, n/v, abdominal pain, fever/chills, diarrhea, chest pain, shortness of breath, and dizziness. Tolerating regular diet. O: VS: BP ranging from 135-146 systolic/ 72-78 diastolic. Trend towards improvement. GEN: NAD Cardio: S1S2, no murmurs Lungs: clear breath sounds b/l, no rales Abdomen: BS+, appropriate tenderness to palpation. Incision in tact- no erythema or discharge. [place] teo is firm and at the level of the umbilicus. Appropriate tenderness EXT: No edema, calves nontender NEURO/PSYCH: AAOx3, no grossly focal deficits, preserved affect and mood. Post op H/H: 11.5/33, Preeclampsia labs wnl Assessment/Plan: 21 y/o female s/p c section doing well on POD2. Magnesium discontinued ye sterday. BP remains stable this morning with few episodes of elevation last night. Adequate Urine out put and no signs of preeclampsia. Pt remains afebrile, tolerating pain with medication. OOB with ca ution. Vogt and Dressing removed yesterday. Anticipating discharge 07/16. Monitor BP, Urine output and signs of preeclampsia SCDs for DVT prophylaxis, encouraged ambulating Percocet 5/325mg q4 and Tylenol 650mg q4 for pain as per pain scale [place]ot 17.2mg po QHS Encourage Discussed with OB Attending Ashwini Lance, PGY1 IP PP Procedures: None Vital Signs Provider PP: Reviewed Vital Signs Provider Details PP: BP systolic 135-146, diastolic 72-78
[2017-07-16] MEDS: Oxycodone/Acetaminophen 5/325 mg Tab PO PRN ×2 (05:23→09:10)
[2017-07-16] MEDS: Prenatal Multivit/Folic Acid/Iron Tab PO SCH (09:10)
--- NOTE | 2017-07-16 10:24 | OBDCSUM ---
Datetime: 07/16/2017 06:00 Discharged to, Provider: Home Follow up at, Provider: Disch Instr Activity: Normal activity; May be up to bathroom; May be up for meals; May Shower Disch Instr Diet: Regular Discharge Instructions, Provider: Routine instructions given Discharge Diagnosis, Provider: Term Delivered Follow up in weeks, Provider: 4-6qweeks Disch Activity Restrictions: No exercising; No lifting; Minimize stair-climbing; No sexual activity; Nothing in vagina - Bruce, tampons, douche Discharge Comment, Provider: Diagnosis: : 21 y/o female s/p c section on 07/13/17 for worseni ng preeclampsia. [place]: Female, 2350, 9/9 Post Summary: Pt remained on Magnesium sulfate for 24 hrs after delivery. Preeclampsia work up was negative. Discharge Instructions: 1. Encourage 2. PNV 1 tab po daily 3. Tylenlol 650mg 1 tab q6 prn for mild-mod pain 4. Percocet 5/325 1 tab po q4 prn for severe pain 5. ER precations: If excessive bleeding or fever without relief from medication, go to ED 6. F/U in 1-2 weeks. Pt given referral for chest clinic for + chest prashant in setting of + ppd. OB Hospitalist note: Pt seen on rounds this morning. Agree with PGY1 note MAHNDO Contraception after Delivery: Undecided
--- NOTE | 2017-07-16 10:24 | OBPPN ---
Datetime: 07/16/2017 05:59 PP Pain Prov: Within normal limits PP Nausea Prov: Denies PP Flatus Prov: Yes PP BM Prov: Yes PP Impression Prov: Normal progression PP Plan Prov: Continue present management; Discharge PP Progress Note Prov: POD3 S: 21 y/o female s/p c section on 07/13/17 for worsening preeclampsia seen and evaluated po st op day 3. No overnight events. Pt reports mild abdominal pain, but well controlled with pain meds . Denies dizziness/ lightheadedness/palpitations. Baby is breast feeding w/ formula supplementation. Lochia is similar to menses volume. No BM. Denies headache, visual disturbances, n/v, abdominal pain, fever/chills, diarrhea, chest pain, shortness of breath, and dizziness. Tolerating regular diet. O: VS: BP ranging from 126-140 systolic/ 75-89 diastolic. GEN: NAD Cardio: S1S2, no murmurs Lungs: clear breath sounds b/l, no rales Abdomen: BS+, appropriate tenderness to palpation. Incision in tact- no erythema or discharge. Janie teo is firm and at the level of the umbilicus. Appropriate tenderness EXT: No edema, calves nontender NEURO/PSYCH: AAOx3, no grossly focal deficits, preserved affect and mood. Post op H/H: 11.5/33, Preeclampsia labs wnl Assessment/Plan: 21 y/o female s/p c section doing well on POD3. BP remains stable w/ no s igns of preeclampsia. Pt remains afebrile, tolerating pain with medication. OOB with caution. Antic ipating discharge today. SCDs for DVT prophylaxis, encouraged ambulating Percocet 5/325mg q4 and Tylenol 650mg q4 for pain as per pain scale Sen[place]ot 17.2mg po QHS Encourage Discussed with OB Attending Ashwini Lance PGY1 OB Hospitalist note: Pt seen on rounds this morning. Agree with PGY1 note JEANNDDarwin Schedule Chest clinic appt prior to discharge Vital Signs Provider PP: Reviewed
[2017-07-16 22:36] VITALS: BP 124/76; PULSE 97; RESP 20; TEMP 98.1; O2SAT 97
== END 2017-07-16 14:00 | disposition home or self-care (01) | DRG 651 ==
LOC: H.EROB2 18:21 → H.L&D 20:08 → H.OB/GYN 07-14 18:29
PROVIDERS: ADMIT Obstetrics & Gynecology; ATTEND Obstetrics & Gynecology
PROC: 4A1HXCZ Monitoring of Products of Conception, Cardiac Rate, External Approach (ICD-10-PCS; 2017-07-12)
PROC: 10D00Z1 Extraction of Products of Conception, Low, Open Approach (ICD-10-PCS; principal; 2017-07-13)
DX: O14.94 Unspecified pre-eclampsia, complicating childbirth (principal); Z37.0 Single live birth; Z3A.40 40 weeks gestation of pregnancy

== ENCOUNTER 2018-04-21 17:13 | Emergency (ER) | payer MEDICAID, OTHER ==
[2018-04-21 17:28] VITALS: BP 109/67; PULSE 88; TEMP 97.5; O2SAT 100; BMI 28.5
--- NOTE | 2018-04-21 18:24 | ED PDOC ---
HPI: Abdomen Time Seen by Provider: 04/21/18 17:46 Chief Complaint (Nursing): Abdominal Pain Chief Complaint (Provider): Abdominal Pain History Per: Patient Onset/Duration Of Symptoms: Days (yesterday) Current Symptoms Are (Timing): Constant Location Of Pain/Discomfort: Epigastric Quality Of Discomfort: "Pain" Associated Symptoms: denies: Fever, Nausea, Vomiting, Diarrhea Exacerbating Factors: Food Additional Complaint(s): 22 year old female with a history of migraines presents to the ED with constant, band-like epigastric pain onset yesterday. She reports headache and back pain but denies nausea, vomiting, diarrhea or fever. Patient reports pain is worse after eating food. Patient denies similar symptoms in the past. PMD: Dr. Noonan, [facility] Past Medical History Reviewed: Historical Data, Nursing Documentation, Vital Signs Vital Signs: Last Vital Signs Temp 97.5 F L 04/21/18 17:28 Pulse 88 04/21/18 17:28 Resp BP 109/67 04/21/18 17:28 Pulse Ox 100 04/21/18 17:28 - Medical History PMH: Migraine Denies: Depression, Diabetes, HTN - Surgical History Surgical History: (x1) - Family History Family History: States: Unknown Family Hx - Home Medications Home Medications: Ambulatory Orders Medication Instructions Recorded RX: Multivit/Folic Acid/I 1 tab PO DAILY 07/13/17 [] RX: Acetaminophen [Tylenol 325mg 650 mg PO Q4H PRN #30 tab 07/16/17 tab] RX: oxyCODONE/Acetaminophen 1 tab PO Q6 PRN #20 tab 07/16/17 [Percocet 5/325 mg Tab] Famotidine [Pepcid] 20 mg PO Q12 #14 tab 04/21/18 Ondansetron ODT [Zofran ODT] 4 mg PO Q6 PRN #12 odt 04/21/18 - Allergies Allergies/Adverse Reactions: Allergies Allergy/AdvReac Type Severity Reaction Status Date / Time No Known Allergies Allergy Verified 06/12/17 21:39 Review of Systems ROS Statement: Except As Marked, All Systems Reviewed And Found Negative Constitutional: Negative for: Fever Gastrointestinal: Positive for: Abdominal Pain. Negative for: Nausea, Vomiting, Diarrhea Neurological: Positive for: Headache Physical Exam - Reviewed Nursing Documentation Reviewed: Yes Vital Signs Reviewed: Yes - Physical Exam Appears: Positive for: No Acute Distress Head Exam: Positive for: ATRAUMATIC, NORMOCEPHALIC Skin: Positive for: Normal Color, Warm, Dry Eye Exam: Positive for: Normal appearance, EOMI, PERRL Neck: Positive for: Normal, Painless ROM, Supple Cardiovascular/Chest: Positive for: Regular Rate, Rhythm. Negative for: Murmur Respiratory: Positive for: Normal Breath Sounds. Negative for: Respiratory Distress Gastrointestinal/Abdominal: Positive for: Tenderness (epigastric tenderness), Other (well healed suprapubic scar) Extremity: Positive for: Normal ROM (upper and lower). Negative for: Pedal Edema, Deformity Neurologic/Psych: Positive for: Alert, Oriented (x3) - Laboratory Results Result Diagrams: 04/21/18 18:38 04/21/18 18:38 - ECG O2 Sat by Pulse Oximetry: 100 (RA) Pulse Ox Interpretation: Normal Medical Decision Making Medical Decision Making: Time: 1814 Impression: Abdominal pain; headaches Differential diagnoses include but are not limited to: gastritis, cholestasis, and pancreatitis. Migraines. --CMP --Lipase --U preg --U dip --CBC --Reglan 10 mg IVP --Toradol 30 mg IVP Time: 1899 --Patient signed out to Dr. Benavidez by this provider, pending US abdomen. Scribe Attestation: Documented by Shonda Horn, acting as a scribe for Gaurav Millard MD. Provider Scribe Attestation: All medical record entries made by the Scribe were at my direction and personally dictated by me. I have reviewed the chart and agree that the record accurately reflects my personal performance of the history, physical exam, medical decision making, and the department course for this patient. I have also personally directed, reviewed, and agree with the discharge instructions and disposition. Disposition - Clinical Impression Clinical Impression: Abdominal pain - Patient ED Disposition Is Patient to be Admitted: Transfer of Care Counseled Patient/Family Regarding: Studies Performed, Diagnosis - Disposition Referrals: [facility] [Outside] Disposition: Transfer of Care Disposition Time: 19:00 Condition: STABLE Prescriptions: Famotidine [Pepcid] 20 mg PO Q12 #14 tab Ondansetron ODT [Zofran ODT] 4 mg PO Q6 PRN #12 odt PRN Reason: Nausea/Vomiting Instructions: Gallstones Forms: [employer] Connect (Sami) Print Language: CROATIAN Patient Signed Over To: Samuel Benavidez
[2018-04-21 18:42] LABS: BASO % 0.6 % (0.0-2.0); EOS # 0.2 K/uL (0.0-0.7); HEMOGLOBIN 12.6 g/dL (12.0-16.0); LYMPH # 1.6 K/uL (1.0-4.3); LYMPH % 28.6 % (20.0-40.0); MEAN CELL VOLUME 88.9 fl (81.0-99.0); MEAN CORPUSCULAR HEMOGLOBIN 29.6 pg (27.0-31.0); MEAN CORPUSCULAR HGB CONC 33.3 g/dL (33.0-37.0); MEAN PLATELET VOLUME 10.9 fl (7.2-11.7); MONO # 0.8 K/uL (0.0-0.8); NEUT % 53.8 % (50.0-75.0); RBC 4.25 Mil/uL (3.80-5.20); RED CELL DISTRIBUTION WIDTH 12.8 % (11.5-14.5); WHITE BLOOD COUNT 5.6 K/uL (4.8-10.8)
[2018-04-21 18:53] LABS: ALB/GLOB RATIO 1.4 (1.0-2.1); ALBUMIN 4.2 g/dL (3.5-5.0); ALT/SGPT 40 U/L (9-52); AST/SGOT 27 U/L (14-36); BLOOD UREA NITROGEN 11 mg/dl (7-17); CALCIUM 9.2 mg/dL (8.4-10.2); GFR NON-AFRICAN AMERICAN > 60; LIPASE 69 U/L (23-300)
--- NOTE | 2018-04-21 19:18 | ED PDOC ---
- Laboratory Results Result Diagrams: 04/21/18 18:38 04/21/18 18:38 Lab Results: Total Bilirubin 0.3 mg/dl (0.2-1.3) 04/21/18 18:38 AST 27 U/L (14-36) 04/21/18 18:38 ALT 40 U/L (9-52) 04/21/18 18:38 Alkaline Phosphatase 43 U/L (38-126) 04/21/18 18:38 Total Protein 7.1 G/DL (6.3-8.2) 04/21/18 18:38 Albumin 4.2 g/dL (3.5-5.0) 04/21/18 18:38 Globulin 3.0 gm/dL (2.2-3.9) 04/21/18 18:38 Albumin/Globulin Ratio 1.4 (1.0-2.1) 04/21/18 18:38 Lipase 69 U/L (23-300) 04/21/18 18:38 - ECG O2 Sat by Pulse Oximetry: 100 (RA) Pulse Ox Interpretation: Normal Medical Decision Making Medical Decision Making: Time: 1899 --Patient signed out to this provider by Dr. Millard, pending US abdomen. Time: 2120 US abdomen Findings Liver Measures 15.8 cm in length. Increased echogenicity of the liver parenchyma. No mass. No intrahepatic bile duct dilatation. Gallbladder Echogenic mobile focus measures 0.8 x 1 x 0.6 cm. Gallbladder wall thickness measures 3 mm. Common bile duct Measures 2.8 mm. No stones. No dilatation. Pancreas Unremarkable as visualized. No mass. No ductal dilatation. Right kidney Measures 11.3 x 4.9 x 5.1 cm in length. Normal echogenicity. No calculus, mass, or hydronephrosis. Aorta No aneurysmal dilatation. IVC Unremarkable. Other Findings None. Impression 1. Fatty liver. 2. Gallstone. Time: 2155 --Patient is stable for discharge home, given outpatient followup. Diagnosis cholelithiasis Scribe Attestation: Documented by Shonda Horn, acting as a scribe for Samuel Benavidez MD. Provider Scribe Attestation: All medical record entries made by the Scribe were at my direction and personally dictated by me. I have reviewed the chart and agree that the record accurately reflects my personal performance of the history, physical exam, medical decision making, and the department course for this patient. I have also personally directed, reviewed, and agree with the discharge instructions and disposition. Disposition - Clinical Impression Clinical Impression: Abdominal pain, Cholelithiasis - POA Present On Arrival: None - Disposition Referrals: [facility] [Outside] Disposition: Routine/Home Disposition Time: 21:56 Condition: STABLE Prescriptions: Famotidine [Pepcid] 20 mg PO Q12 #14 tab Ondansetron ODT [Zofran ODT] 4 mg PO Q6 PRN #12 odt PRN Reason: Nausea/Vomiting Instructions: Gallstones Forms: [employer] [facility] (Colombian) Print Language: GRENADIAN
--- NOTE | 2018-04-22 13:04 | US ---
Date of service: 04/21/2018 HISTORY: Epigastric pain. COMPARISON: None. TECHNIQUE: Sonographic evaluation of the right upper quadrant of the abdomen. FINDINGS: LIVER: Measures 15.8 cm in length. Hepatopedal blood flow. Fatty infiltration manifest ultrasonographically as increased echogenicity of the liver parenchyma. No mass. No intrahepatic bile duct dilatation. GALLBLADDER: Cholelithiasis. Negative study for gallbladder wall thickening, pericholecystic fluid, sonographic Sorensen's sign. Solitary gallstone 6 x 8 mm. COMMON BILE DUCT: Measures 2.8 mm. No stones. No dilatation. PANCREAS: Unremarkable as visualized. No mass. No ductal dilatation. RIGHT KIDNEY: Measures 5.1 x 11.3 cm in length. Normal echogenicity. No calculus, mass, or hydronephrosis. AORTA: No aneurysmal dilatation. IVC: Unremarkable. OTHER FINDINGS: None . IMPRESSION: Cholelithiasis. No sonographic evidence of acute cholecystitis. Solitary, mobile gallstone measures 6 x 8 mm. Additional benign and/or incidental findings described above. Concordant findings (preliminary report) provided by [facility].
== END 2018-04-21 21:57 | disposition home or self-care (01) ==
LOC: H.ER 17:13
DX: K80.20 Calculus of gallbladder without cholecystitis without obstruction (principal); R10.9 Unspecified abdominal pain
CPT/HCPCS: 76705; 80053; 81025; 83690; 85025; 96374; 96375; 99284; J1885; J2765